=== PATIENT | female | born 1950 | race Caucasian/White ===

== ENCOUNTER → 2021-04-09 | Outpatient (CLI) | payer MEDICARE | LOC: M RAD 10:49 | PROVIDERS: ATTEND Internal Medicine Pulmonary Disease | DX: R91.1 Solitary pulmonary nodule (principal) ==

== ENCOUNTER → 2021-06-24 | Outpatient (CLI) | payer MEDICARE ==
--- NOTE | 2021-06-24 15:10 | REP ---
INDICATION: ABN FINIDINGS OF LUNG FIELD COMPARISON: Multiple the latest 04/09/2021 TECHNIQUE: Standard helical technique without intravenous contrast administration FINDINGS: The mediastinum and pulmonary rhonda are unchanged. The imaged upper abdomen and imaged osseous structures are unchanged. Evaluation of the lung dumont shows no significant change in appearance of the inferior lingular density. In addition, new somewhat patchy and asymmetric densities have developed in the lower lobes. There is cylindrical bronchiectasis status quo. There are a few patchy peripheral ground-glass opacities also seen in the lower lobe regions. Small subpleural nodule seen previously in the right upper lobe are all stable. IMPRESSION: 1. Bibasilar opacities have increased as described above. The etiology is uncertain. Although the degree of inspiratory effort on today's exam is somewhat less compared to the prior exam the lung dumont are certainly not hypoexpanded. 2. The asymmetric lingular density is unchanged. Although has the appearance of chronic atelectatic change something more ominous cannot be ruled out at this time. Consider PET-CT if clinically relevant. 3. Other findings as described above. <Electronically signed by Garcia Espinosa > 06/24/21 1960
== END ==
LOC: M RAD 14:09
PROVIDERS: ATTEND Internal Medicine Pulmonary Disease
DX: R91.8 Other nonspecific abnormal finding of lung field (principal)

== ENCOUNTER → 2021-07-11 | Outpatient (CLI) | payer MEDICARE ==
--- NOTE | 2021-07-11 11:58 | PFTRPT ---
Site: [facility], [address] [place], [address] ID: [id number] Name: HAYDE BEAULIEU Visit Date: 07/11/2021 Second ID: [id number] Referring Doctor: Mili Clarke MD Reviewing Doctor: Hussain Sinclair MD Blender Laborer: Aurora CORBETT RRT Age: 71 : 1950 Sex: Female Race: Height: 65.00 Inches Weight: 170.00 Lbs BSA: 1.85 Order IDs: [id number] Requested Test(s): <RESP-PFT.PFT B/A> Diagnosis: J47.9 test meet the ATS standards for acceptability and repeatability. Review Status: Not Reviewed Pre-Bronch Post-Bronch Pred Actual %Pred Actual %Chng SPIROMETRY FVC (L) 3.15 2.83 89 FEV1 (L) 2.39 2.19 91 FEV1/FVC (%) 76 77 101 FEF 25% (L/sec) 4.87 4.10 84 FEF 50% (L/sec) 3.37 2.70 80 FEF 75% (L/sec) 1.00 0.74 73 FEF 25-75% (L/sec) 2.00 1.95 97 FEF Max (L/sec) 5.87 4.87 83 FIVC (L) 2.65 FIF 50% (L/sec) 3.38 3.90 115 FIF Max (L/sec) 4.44 MVV (L/min) 88 82 93 Expiratory Time (sec) 6.93 Back Extrap Vol (L) 0.04 Time To FEFmax (sec) 0.066 LUNG VOLUMES SVC (L) 2.98 2.95 99 IC (L) 2.22 2.43 109 ERV (L) 0.76 0.53 69 TGV (L) 2.98 2.88 96 RV (Pleth) (L) 2.22 2.36 106 TLC (Pleth) (L) 5.20 5.31 102 RV/TLC (Pleth) (%) 43 44 103 DIFFUSION DLCOunc (ml/min/mmHg) 21.03 10.51 49 DLCOcor (ml/min/mmHg) 21.03 10.89 51 DL/VA (ml/min/mmHg/L) 4.04 2.43 60 VA (L) 5.20 4.48 86 BHT (sec) 10.34 IVC (L) 2.93 TLC (SB) (L) 4.63 AIRWAYS RESISTANCE Raw (cmH2O/L/s) 1.86 0.87 46 Gaw (L/s/cmH2O) 1.03 1.16 112 sRaw (cmH2O*s) 4.76 2.64 55 sGaw (1/cmH2O*s) 0.20 0.38 191 BLOOD GASES Hgb (gm/dL) 12.3
== END ==
LOC: M CARPUL 11:26
PROVIDERS: ATTEND Internal Medicine Pulmonary Disease
DX: J47.9 Bronchiectasis, uncomplicated (principal)

== ENCOUNTER → 2021-09-03 | Outpatient (CLI) | payer MEDICARE ==
--- NOTE | 2021-09-03 14:33 | PFTRPT ---
Site: [facility], [address] [place] [address], [address] ID: [id number] Name: HAYDE BEAULIEU Visit Date: 09/03/2021 Second ID: [id number] Referring Doctor: Mili Clarke MD Reviewing Doctor: Hussain Sinclair MD Test Borer Helper: Aurora CORBETT RRT Age: 71 : 1950 Sex: Female Race: Height: 65.00 Inches Weight: 160.00 Lbs BSA: 1.80 Order IDs: [id number] Requested Test(s): <RESP-PFT.DLCO> Diagnosis: J47.9 test meet the ATS standards for acceptability and repeatability. Review Status: Not Reviewed Pre-Bronch Post-Bronch Pred Actual %Pred Actual %Chng SPIROMETRY FVC (L) 3.15 3.04 96 FEV1 (L) 2.39 2.37 99 FEV1/FVC (%) 76 78 102 FEF 25% (L/sec) 4.86 3.85 79 FEF 50% (L/sec) 3.36 3.53 104 FEF 75% (L/sec) 1.00 0.82 81 FEF 25-75% (L/sec) 1.99 2.11 105 FEF Max (L/sec) 5.86 4.90 83 FIVC (L) 2.86 FIF 50% (L/sec) 3.32 3.83 115 FIF Max (L/sec) 3.92 MVV (L/min) 88 86 98 Expiratory Time (sec) 6.77 Back Extrap Vol (L) 0.05 Time To FEFmax (sec) 0.064 LUNG VOLUMES SVC (L) 2.98 2.90 97 IC (L) 2.22 2.54 114 ERV (L) 0.76 0.36 47 TGV (L) 2.98 3.12 104 RV (Pleth) (L) 2.22 2.76 124 TLC (Pleth) (L) 5.20 5.66 108 RV/TLC (Pleth) (%) 43 49 113 DIFFUSION DLCOunc (ml/min/mmHg) 21.01 14.05 66 DLCOcor (ml/min/mmHg) 21.01 14.36 68 DL/VA (ml/min/mmHg/L) 4.04 3.14 77 VA (L) 5.20 4.57 87 BHT (sec) 9.73 IVC (L) 2.85 TLC (SB) (L) 4.72 AIRWAYS RESISTANCE Raw (cmH2O/L/s) 1.86 0.90 48 Gaw (L/s/cmH2O) 1.03 1.14 110 sRaw (cmH2O*s) 4.76 2.85 59 sGaw (1/cmH2O*s) 0.20 0.36 179 BLOOD GASES Hgb (gm/dL) 12.7
== END ==
LOC: M CARPUL 13:33
PROVIDERS: ATTEND Internal Medicine Pulmonary Disease
DX: J47.9 Bronchiectasis, uncomplicated (principal)

== ENCOUNTER → 2021-12-23 | Outpatient (CLI) | payer MEDICARE | LOC: M RAD 12:25 | PROVIDERS: ATTEND Internal Medicine Pulmonary Disease | DX: R91.8 Other nonspecific abnormal finding of lung field (principal); J84.9 Interstitial pulmonary disease, unspecified ==

== ENCOUNTER → 2023-07-29 | Outpatient (REF) | payer MEDICARE | LOC: M LAB REF 16:07 | PROVIDERS: ATTEND Surgery | DX: D23.4 Other benign neoplasm of skin of scalp and neck (principal) ==

== ENCOUNTER 2023-11-17 11:16 | Day surgery (SDC) | payer MEDICARE ==
[~2023-11-17] VITALS: Ht 165.1 cm; Wt 82.1 kg
[~2023-11-17 11:16] MED LIST: ARMO90TA PO; ATEN50TA2 PO; CLON0.5T2 PO; CRES40TA PO; HYDR200T46 PO; LIDOCAINE 2% 100MG/5ML SDV (FOR ANES.) As Ordered ONE; LORA-1041 PO; MAGN200T PO; MONT10TA97 PO; ZOLO100T PO; propofoL 200 MG/20 ML VIAL As Ordered ONE
[2023-11-17] MEDS: NS 1,000 ML IV ONE (11:50)
[2023-11-17] MEDS ORDERED: fentaNYL 100 MCG/2 ML INJECTION As Ordered ONE (12:38)
[2023-11-17 13:03] VITALS: TEMP 96.7
[2023-11-17 13:18] VITALS: BP 115/63; O2SAT 95
== END 2023-11-17 13:35 | disposition home or self-care (01) ==
LOC: M OPP 11:16
PROVIDERS: ATTEND Internal Medicine Gastroenterology
DX: Z86.010 Personal history of colon polyps (principal); Z80.0 Family history of malignant neoplasm of digestive organs; Z98.0 Intestinal bypass and anastomosis status; K57.30 Diverticulosis of large intestine without perforation or abscess without bleeding; Z15.09 Genetic susceptibility to other malignant neoplasm; Z44.9 Encounter for fitting and adjustment of unspecified external prosthetic device; Z79.02 Long term (current) use of antithrombotics/antiplatelets; Z79.899 Other long term (current) drug therapy; Z91.048 Other nonmedicinal substance allergy status
CPT/HCPCS: 43235; G0105; J3010

== ENCOUNTER → 2024-11-02 | Outpatient (CLI) | payer MEDICARE ==
[~2024-11-02] MED LIST changes: -LIDOCAINE 2% 100MG/5ML SDV (FOR ANES.) As Ordered ONE; -propofoL 200 MG/20 ML VIAL As Ordered ONE
== END ==
LOC: M PLAIMG 10:37
PROVIDERS: ATTEND Internal Medicine Pulmonary Disease
DX: R91.8 Other nonspecific abnormal finding of lung field (principal)

== ENCOUNTER → 2025-01-09 | Outpatient (CLI) | payer MEDICARE | LOC: M PLAIMG 14:46 | PROVIDERS: ATTEND Internal Medicine Pulmonary Disease | DX: R91.8 Other nonspecific abnormal finding of lung field (principal); J47.9 Bronchiectasis, uncomplicated; J84.9 Interstitial pulmonary disease, unspecified; I70.0 Atherosclerosis of aorta; I25.10 Atherosclerotic heart disease of native coronary artery without angina pectoris ==

== ENCOUNTER 2025-03-30 09:53 | Day surgery (SDC) | payer MEDICARE ==
[~2025-03-30] VITALS: Ht 165.1 cm; Wt 82.1 kg
[~2025-03-30 09:53] MED LIST changes: +AZEL1SPR3; +BENL200I SC; +DESL1TAB3 PO; +GLYCOPYRROLATE INJ 0.2 MG/ML 2 ML VIAL As Ordered ONE; +LIDOCAINE 2% 100 MG/5 ML SDV (FOR ANES.) As Ordered ONE; +ROSU40TA81 PO; +SLOW160T12 PO; +ZOLP10TA2 PO
[2025-03-30 11:29] VITALS: TEMP 96.6
[2025-03-30 11:48] VITALS: BP 120/76; O2SAT 96
== END 2025-03-30 12:00 | disposition home or self-care (01) ==
LOC: M OPP 09:53
PROVIDERS: ATTEND Internal Medicine Gastroenterology
DX: K57.30 Diverticulosis of large intestine without perforation or abscess without bleeding (principal); K64.8 Other hemorrhoids; Z15.09 Genetic susceptibility to other malignant neoplasm; Z98.0 Intestinal bypass and anastomosis status; K52.9 Noninfective gastroenteritis and colitis, unspecified; K22.70 Barrett's esophagus without dysplasia; K31.89 Other diseases of stomach and duodenum; Z91.040 Latex allergy status; Z91.048 Other nonmedicinal substance allergy status; Z79.899 Other long term (current) drug therapy; Z87.891 Personal history of nicotine dependence
CPT/HCPCS: 43239; 45380; 88305; J1596; J3010